=== PATIENT | female | born 2000 | race Caucasian/White ===

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

== ENCOUNTER → 2021-04-23 | Outpatient (CLI) | payer BC | LOC: LAB SHORT 18:00 → LAB 18:00 | DX: R10.9 Unspecified abdominal pain (principal); R30.9 Painful micturition, unspecified | CPT/HCPCS: 87077; 87086; 87186 ==

== ENCOUNTER → 2022-03-13 | Outpatient (CLI) | payer BC | END | disposition home or self-care (01) | LOC: LAB SHORT 09:00 → LAB 09:00 | PROVIDERS: Medical Genetics Clinical Genetics (M.D.) | DX: E83.01 Wilson's disease (principal) | CPT/HCPCS: 81050; 82525; 82570 ==

== ENCOUNTER → 2022-07-29 | Outpatient (CLI) | payer BC | LOC: LAB 11:00 → LAB SHORT 11:00 | DX: R30.0 Dysuria (principal) | CPT/HCPCS: 87077; 87086; 87186 ==

== ENCOUNTER → 2022-09-16 | Outpatient (CLI) | payer BC | END | disposition home or self-care (01) | LOC: LAB 08:05 → LAB SHORT 08:05 | PROVIDERS: Medical Genetics Clinical Genetics (M.D.) | DX: E83.01 Wilson's disease (principal) | CPT/HCPCS: 81050; 82525; 82570 ==

== ENCOUNTER → 2023-01-13 | Outpatient (CLI) | payer BC | END | disposition home or self-care (01) | LOC: LAB SHORT 09:00 → LAB 09:00 | PROVIDERS: Medical Genetics Clinical Genetics (M.D.) | DX: E83.01 Wilson's disease (principal) | CPT/HCPCS: 81050; 82525; 82570 ==

== ENCOUNTER → 2023-04-07 | Outpatient (CLI) | payer SELFPAY | END | disposition home or self-care (01) | LOC: LAB SHORT 09:31 → LAB 09:31 | PROVIDERS: Medical Genetics Clinical Genetics (M.D.) | DX: E83.01 Wilson's disease (principal) | CPT/HCPCS: 81050; 82525; 82570 ==